=== PATIENT | male | born 1965 | race Caucasian/White ===

== ENCOUNTER 2020-08-03 17:53 | Emergency (ER) | payer OTHER, SELFPAY ==
--- NOTE | ~2020-08-03 | CT_ITS ---
EXAMINATION: CT ABDOMEN AND PELVIS WITH CONTRAST CLINICAL INFORMATION: Left lower quadrant pain COMPARISON: None TECHNIQUE: Multidetector volumetric images were obtained from the superior aspect of the liver through the pubic symphysis following administration of 75 mL of Omnipaque 350 intravenous contrast. Sagittal and coronal reformatted images were obtained on the technologist's workstation. Oral contrast: No This CT examination was performed using dose optimization techniques as appropriate, variously including the following: *Automated exposure control *Adjustment of mA and/or kV according to patient size (this includes techniques or standardized protocols for targeted exams where dose is matched to indication/reason for exam; i.e. extremities or head) *Use of iterative reconstruction technique DLP: 448 mGy-cm FINDINGS: LUNG BASES: The visualized lung bases are unremarkable. LIVER, GALLBLADDER, AND BILIARY TREE: The liver is normal in size, shape, and attenuation. No focal hepatic lesion or biliary ductal dilatation is present. The gallbladder is unremarkable with no evidence of radiopaque gallstones, gallbladder wall thickening, or obvious pericholecystic inflammatory changes. PANCREAS: Unremarkable. SPLEEN: Unremarkable. ADRENAL GLANDS: Left adrenal thickening but no mass seen. Normal right adrenal gland. KIDNEYS AND URETERS: Tiny water density simple cysts in the left kidney for which no imaging follow-up is recommended. Symmetric bilateral renal enhancement. No calculi or hydronephrosis. BLADDER: Unremarkable. GASTROINTESTINAL TRACT: The small and large bowel are unremarkable. The appendix is unremarkable. ABDOMINAL WALL: No significant hernia is appreciated. LYMPH NODES: Normal. VASCULAR: Normal caliber abdominal aorta with moderate calcified atherosclerotic changes. PELVIC VISCERA: The prostate and seminal vesicles are unremarkable. OSSEOUS STRUCTURES: Mild multilevel degenerative changes with no acute osseous abnormality. CT/CT abdomen pelvis w con IMPRESSION: No acute CT findings.
[2020-08-03 17:58] VITALS: BP 147/92; PULSE 83; RESP 18; TEMP 36.8; O2SAT 97; BMI 24.3
[2020-08-03 20:12] LABS: MANUAL DIFF FLAG NO
[2020-08-03 20:15] LABS: Basophils Absolute Auto 0.1 X10*3/uL (0.0-0.2); Basophils Percent Auto 0.4 % (0-2); Eosinophils Absolute Auto 0.1 X10*3/uL (0.0-0.4); Eosinophils Percent Auto 0.9 % (0-4); Hemoglobin 16.3 g/dl (14.0-18.0); Imm Gran Abs Auto 0.06 X10*3/uL (0.00-0.03); Imm Gran Pct Auto 0.4 % (0.0-0.4); Lymphocytes Percent Auto 14.7 % (20-40); Mean Corpuscular HGB Conc 34.7 g/dl (31.0-36.0); Mean Corpuscular Hemoglobin 33.1 pg (27.0-33.0); Mean Corpuscular Volume 95.5 fL (80-98); Monocytes Absolute Auto 1.1 X10*3/uL (0.1-1.2); Monocytes Percent Auto 8.2 % (2-11); Neutrophils Absolute Auto 10.3 X10*3/uL (2.0-8.3); Neutrophils Percent Auto 75.4 % (45-73); Platelet Count 272 X10*3/uL (160-400); Red Blood Count 4.92 X10*6/uL (4.60-5.80); Red Cell Distribution Width 11.9 % (11.0-16.0); White Blood Count 13.6 X10*3/uL (4.8-10.8)
[2020-08-03 20:35] LABS: Alanine Aminotransferase 39 U/L (0-40); Albumin Level 4.9 g/dL (3.5-5.0); Alkaline Phosphatase 103 U/L (39-117); Anion Gap 18 (12-20); Aspartate Amino Transferase 30 U/L (5-37); Bilirubin Total 1.1 mg/dL (0.0-1.0); Blood Urea Nitrogen 15 mg/dL (9-16); Calcium 9.4 mg/dL (8.4-10.2); Carbon Dioxide 23 mmol/L (22-29); Chloride 102 mmol/L (96-108); Creatinine Clr Calc Pharmacy 71.9; Estimated Glomerular Filt Rate > 60; Glucose Random 94 mg/dL (60-115); Lipase 72 U/L (8-78); Potassium 4.2 mmol/L (3.3-5.1); Sodium 139 mmol/L (135-145); Total Protein 7.8 g/dL (6.5-8.0)
[2020-08-03 20:57] VITALS: BP 157/96; PULSE 91; RESP 19; TEMP 37.1; O2SAT 98
[2020-08-03 21:12] LABS: Glucose Urine UA NEG (NEG); Leukocyte Esterase Urine NEG (NEG); Nitrite Urine NEG (NEG); Urine Blood 1+ (NEG); Urine Ketones NEG (NEG); Urine Protein NEG (NEG-TRACE)
[2020-08-03 21:22] LABS: Appearance Urine CLEAR; Color Urine YELLOW
--- NOTE | 2020-08-03 21:26 | ED_ITS ---
HPI - Abdominal Pain General Chief Complaint: Abdominal Pain Stated Complaint: LUQ Pain Time Seen by Provider: 08/03/20 21:25 Source: patient Mode of arrival: ambulatory History of Present Illness HPI narrative: This is a 54-year-old male without significant past medical history who presents with onset of left lower quadrant pain since this morning without associated fevers, chills, nausea, vomiting and states his last bowel movement was today. There are no exacerbating or alleviating maneuvers and patient denies any urinary pain/burning/frequency. He states this is never happened before denies any previous surgical history. States the pain will just all sudden, on and then will subside a little bit. Related Data Previous Rx's Medication Instructions Recorded amoxicillin-pot clavulanate 1 tab PO Q12H 7 Days #14 tab 08/03/20 [Augmentin] Allergies Allergy/AdvReac Type Severity Reaction Status Date / Time No Known Allergies Allergy Unverified 08/03/20 17:57 Review of Systems Review of Systems PERTINENT POSITIVES AND NEGATIVES STATED IN HPI 10 POINT REVIEW OF SYSTEMS IS OTHERWISE NEGATIVE. Physical Exam Vital Signs: Vital Signs: Last Vital Signs Temp 98.7 F 08/03/20 22:06 Pulse 92 08/03/20 22:06 Resp 18 08/03/20 22:06 BP 131/80 08/03/20 22:06 Pulse Ox 97 08/03/20 22:06 Body Mass Index 24.3 VITAL SIGNS: Reviewed. GENERAL: Well developed, well nourished, in no acute distress. HEAD: Normocephalic/atraumatic NOSE: Nares patent bilateral OROPHARYNX: no oral lesions noted, posterior pharynx clear NECK: Supple, no adenopathy LUNGS: Normal breath sounds. No adventitious sounds or accessory muscle use. SpO2<97> CARDIOVASCULAR: Regular rate and rhythm without noted murmurs, no JVD or lower extremity edema. ABDOMEN: Soft, slight tenderness noted at left lower quadrant without rebound, non-distended with bowel sounds. No rigidity. NEUROLOGIC: Alert and oriented x 4. Course Course Course Narrative: 54-year-old male with history and clinical presentation sugg estive diverticulitis and less likely renal colic or SBO. On review all investigations there is a leukocytosis, however CT scan is being read as negative. Given the clinical findings in the noted leukocytosis with a negative urinalysis and no evidence on history pulmonary symptoms will empirically treat for early, mild diverticulitis and strongly recommend re-evaluation by primary care provider on Wednesday morning. MDM - Abdominal Pain Lab Data Result diagrams: 08/03/20 20:07 08/03/20 20:07 Labs: Lab Results 08/03/20 08/03/20 08/03/20 Range/Units 20:07 20:07 20:07 WBC 13.6 H (4.8-10.8) X10*3/uL RBC 4.92 (4.60-5.80) X10*6/uL Hgb 16.3 (14.0-18.0) g/dl Hct 47.0 (42-52) % MCV 95.5 (80-98) fL MCH 33.1 H (27.0-33.0) pg MCHC 34.7 (31.0-36.0) g/dl RDW 11.9 (11.0-16.0) % Plt Count 272 (160-400) X10*3/uL MPV 9.0 L (9.4-12.4) fL Immature Gran % (Auto) 0.4 (0.0-0.4) % Neut % (Auto) 75.4 H (45-73) % Lymph % (Auto) 14.7 L (20-40) % Clark % (Auto) 8.2 (2-11) % Eos % (Auto) 0.9 (0-4) % Baso % (Auto) 0.4 (0-2) % Lymph # (Auto) 2.0 (1.2-4.9) X10*3/uL Clark # (Auto) 1.1 (0.1-1.2) X10*3/uL Eos # (Auto) 0.1 (0.0-0.4) X10*3/uL Baso # (Auto) 0.1 (0.0-0.2) X10*3/uL Abs Immat Gran (auto) 0.06 H (0.00-0.03) X10*3/uL Absolute Neuts (auto) 10.3 H (2.0-8.3) X10*3/uL Absolute Nucleated RBC 0.000 (0.0-0.012) X10*3/uL Nucleated RBC % (auto) 0.0 (0.0-0.2) /100WBC Hold Blue Top SEE NOTE Sodium 139 (135-145) mmol/L Potassium 4.2 (3.3-5.1) mmol/L Chloride 102 (96-108) mmol/L Carbon Dioxide 23 (22-29) mmol/L Anion Gap 18 (12-20) BUN 15 (9-16) mg/dL Creatinine 1.24 (0.5-1.4) mg/dL Estim Creat Clear Calc 71.9 Estimated GFR > 60 Random Glucose 94 (60-115) mg/dL Calcium 9.4 (8.4-10.2) mg/dL Total Bilirubin 1.1 H (0.0-1.0) mg/dL AST 30 (5-37) U/L ALT 39 (0-40) U/L Alkaline Phosphatase 103 (39-117) U/L Total Protein 7.8 (6.5-8.0) g/dL Albumin 4.9 (3.5-5.0) g/dL Lipase 72 (8-78) U/L Urine Color Urine Appearance Urine pH (5.0-8.0) Ur Specific [place] (1.005-1.025) Urine Protein (NEG-TRACE) MG/DL Urine Glucose (UA) (NEG) MG/DL Urine Ketones (NEG) MG/DL Urine Blood (NEG) Urine Nitrite (NEG) Ur Leukocyte Esterase (NEG) Urine RBC (0) /HPF Urine WBC (0-4) /HPF Ur Squamous Epith Cells /LPF Urine Bacteria /LPF 08/03/20 Range/Units 21:05 WBC (4.8-10.8) X10*3/uL RBC (4.60-5.80) X10*6/uL Hgb (14.0-18.0) g/dl Hct (42-52) % MCV (80-98) fL MCH (27.0-33.0) pg MCHC (31.0-36.0) g/dl RDW (11.0-16.0) % Plt Count (160-400) X10*3/uL MPV (9.4-12.4) fL Immature Gran % (Auto) (0.0-0.4) % Neut % (Auto) (45-73) % Lymph % (Auto) (20-40) % Clark % (Auto) (2-11) % Eos % (Auto) (0-4) % Baso % (Auto) (0-2) % Lymph # (Auto) (1.2-4.9) X10*3/uL Clark # (Auto) (0.1-1.2) X10*3/uL Eos # (Auto) (0.0-0.4) X10*3/uL Baso # (Auto) (0.0-0.2) X10*3/uL Abs Immat Gran (auto) (0.00-0.03) X10*3/uL Absolute Neuts (auto) (2.0-8.3) X10*3/uL Absolute Nucleated RBC (0.0-0.012) X10*3/uL Nucleated RBC % (auto) (0.0-0.2) /100WBC Hold Blue Top Sodium (135-145) mmol/L Potassium (3.3-5.1) mmol/L Chloride (96-108) mmol/L Carbon Dioxide (22-29) mmol/L Anion Gap (12-20) BUN (9-16) mg/dL Creatinine (0.5-1.4) mg/dL Estim Creat Clear Calc Estimated GFR Random Glucose (60-115) mg/dL Calcium (8.4-10.2) mg/dL Total Bilirubin (0.0-1.0) mg/dL AST (5-37) U/L ALT (0-40) U/L Alkaline Phosphatase (39-117) U/L Total Protein (6.5-8.0) g/dL Albumin (3.5-5.0) g/dL Lipase (8-78) U/L Urine Color YELLOW Urine Appearance CLEAR Urine pH 6.0 (5.0-8.0) Ur Specific [place] 1.020 (1.005-1.025) Urine Protein NEG (NEG-TRACE) MG/DL Urine Glucose (UA) NEG (NEG) MG/DL Urine Ketones NEG (NEG) MG/DL Urine Blood 1+ H (NEG) Urine Nitrite NEG (NEG) Ur Leukocyte Esterase NEG (NEG) Urine RBC 0-2 (0) /HPF Urine WBC 0-2 (0-4) /HPF Ur Squamous Epith Cells TRACE /LPF Urine Bacteria NONE /LPF Discharge Plan Discharge Clinical Impression: Diverticulitis Patient Disposition: Home, Self-Care Instructions: Diverticulitis (ED), Diverticulitis Diet (ED) Additional Instructions: Please follow-up with your primary care provider on Wednesday morning for re- evaluation. Treat her pain with [id number] Tylenol/ibuprofen as directed on the outside packaging. Do not hesitate to return to the emergency department should you experience any acute worsening of symptoms. Prescriptions: New amoxicillin-pot clavulanate [Augmentin] 875-125 mg tablet 1 tab PO Q12H 7 Days Qty: 14 RF: 0 Referrals: Derrick Ruiz MD [Primary Care Provider] - 2 days (Re-evaluate after seen in the ER for left lower quadrant pain and although there was a noted leukocytosis and history was consistent with diverticulitis the CT scan was read as negative. I made the decision to empirically treat patient for diverticulitis.) [facility], [facility] Past Medical History Source: nursing notes reviewed Medical History HTN (hypertension) Hyperlipidemia Social History Social History Advance Directives: No Advance Directives Information Provided: Yes
[2020-08-03 21:35] LABS: RBC Urine 0-2 /HPF (0); Squamous Epithelial Cell Urine TRACE /LPF; WBC Urine 0-2 /HPF (0-4)
[2020-08-03] MEDS: 0.9 % Sodium Chloride 1,000 ML 999 ML IV (21:43)
[2020-08-03] MEDS: iohexoL 350 MG/ML 75 ML INFUS..BTL IV (21:58)
[2020-08-03 22:06] VITALS: BP 131/80; PULSE 92; RESP 18; TEMP 37.1; O2SAT 97
== END 2020-08-03 23:29 | disposition home or self-care (01) ==
PROVIDERS: Emergency Provider Student in an Organized Health Care Education/Training Program; PCP Internal Medicine
DX: K57.92 Diverticulitis of intestine, part unspecified, without perforation or abscess without bleeding (principal); R10.12 Left upper quadrant pain; I10 Essential (primary) hypertension; E78.5 Hyperlipidemia, unspecified
CPT/HCPCS: 36415; 74177; 80053; 81001; 83690; 85025; 96360; 99283; 99284; Q9967